=== PATIENT | female | born 1985 | race Two or more races ===

== ENCOUNTER 2019-12-13 17:54 | Emergency (ER) | payer OTHER ==
[~2019-12-13] VITALS: Ht 167.6 cm; Wt 86.6 kg
[2019-12-13 19:22] VITALS: BP 142/81
--- NOTE | 2019-12-13 20:00 | RAD ---
Exam: Left foot 3 views. Left ankle 3 views INDICATION: Trauma TECHNIQUE: Frontal, lateral and oblique views of the left ankle and left foot Comparisons: None FINDINGS: Ankle: There is a obliquely oriented fracture to the distal fibula. No other fractures are seen. There is soft tissue swelling surrounding the ankle. Bone mineralization is normal. Question mild medial clear space widening. Foot: Bone mineralization is normal. No acute or healed fractures. Soft tissues are unremarkable. Joint spaces are well-maintained. IMPRESSION: 1. Obliquely oriented fracture to the distal fibula. 2. Question mild medial clear space widening. 3. No acute fracture identified at the left foot Electronically signed by: Mikhail Hein MD (12/13/2019 7:57 PM) [id number]
--- NOTE | 2019-12-13 20:13 | PHYS DOC ---
Past Medical History Past Medical History: No Pertinent History Past Surgical History: No Surgical History Smoking Status: Never Smoker Alcohol Use: Occasionally General Adult EDM: Chief Complaint: ANKLE PROBLEM HPI: HPI: Patient is a 34 year old female who presents for evaluation of a left ankle injury. Patient fell at a friend's house 2 days ago and injured her left ankle. Patient denies any other injury patient describes the pain as throbbing and tin gling in her left lateral malleolus. Pain radiates into the foot is worse with palpation and movement and is better with palpation. Intensity is mild at rest and severe with movement. Review of Systems: Review of Systems: Constitutional: Denies fever or chills. [] Eyes: Denies change in visual acuity. [] HENT: Denies nasal congestion or sore throat. [] Respiratory: Denies cough or shortness of breath. [] Cardiovascular: Denies chest pain or edema. [] GI: Denies abdominal pain, nausea, vomiting, bloody stools or diarrhea. [] : Denies dysuria. [] Musculoskeletal: Denies back pain but has left ankle pain Integument: Denies rash. [] Neurologic: Denies headache, focal weakness or sensory changes. [] Endocrine: Denies polyuria or polydipsia. [] Lymphatic: Denies swollen glands. [] Psychiatric: Denies depression or anxiety. [] Heart Score: Risk Factors: Risk Factors: DM, Current or recent (<one month) smoker, HTN, HLP, family history of CAD, obesity. Risk Scores: Score 0 - 3: 2.5% MACE over next 6 weeks - Discharge Home Score 4 - 6: 20.3% MACE over next 6 weeks - Admit for Clinical Observation Score 7 - 10: 72.7% MACE over next 6 weeks - Early Invasive Strategies Allergies: Allergies: Allergies Coded Allergies Type Severity Reaction Last Updated Verified No Known Drug Allergies 12/15/15 No Physical Exam: PE: Constitutional: Well developed, well nourished, no acute distress, non-toxic appearance. [] HENT: Normocephalic, atraumatic, bilateral external ears normal, no trismus nose normal. [] Eyes: PERRLA, EOMI, conjunctiva normal, no discharge. [] Neck: Normal range of motion, no tenderness, supple, no stridor. [] Cardiovascular:Heart rate regular rhythm, peripheral pulses intact cap refill brisk Lungs & Thorax: Bilateral breath sounds cleaR no respiratory distress Abdomen: soft, no tenderness, no masses, no pulsatile masses. [] Skin: Warm, dry, no erythema, no rash. [] Back: No tenderness, no CVA tenderness. [] Extremities: Tenderness and swelling to the left lateral malleolus with swelling of the foot. Neurovascular intact distally. Neurologic: Alert and oriented X 3, normal motor function, normal sensory function, no focal deficits noted. [] Psychologic: Affect normal, judgement normal, mood normal. [] Current Patient Data: Vital Signs: Vital Signs Date Time Temp Pulse Resp B/P (MAP) Pulse Ox O2 Delivery O2 Flow Rate FiO2 12/13/19 19:22 97.6 75 12 142/81 (101) 99 Room Air 97.6 EKG: EKG: [] Radiology/Procedures: Radiology/Procedures: [][facility] [address] [place] [address] IMAGING REPORT Signed PATIENT: SILVIA YATES ACCOUNT: [id number] : 1985 LOCATION: ER AGE: 34 SEX: F EXAM STATUS: REG ER ORD. PHYSICIAN: LISETTE REYES MD REASON: trauma PROCEDURE: ANKLE LEFT 3V Exam: Left foot 3 views. Left ankle 3 views INDICATION: Trauma TECHNIQUE: Frontal, lateral and oblique views of the left ankle and left foot Comparisons: None FINDINGS: Ankle: There is a obliquely oriented fracture to the distal fibula. No other fractures are seen. There is soft tissue swelling surrounding the ankle. Bone mineralization is normal. Question mild medial clear space widening. Foot: Bone mineralization is normal. No acute or healed fractures. Soft tissues are unremarkable. Joint spaces are well-maintained. IMPRESSION: 1. Obliquely oriented fracture to the distal fibula. 2. Question mild medial clear space widening. 3. No acute fracture identified at the left foot Electronically signed by: Mikhail Gates MD (12/13/2019 7:57 PM) [id number] DICTATED and SIGNED BY: MIKHAIL GATES MD DATE: 12/13/19 195 Course & Med Decision Making: Course & Med Decision Making Pertinent Labs and Imaging studies reviewed. (See chart for details) [] 34-year-old female with a left lateral malleolar fracture. Short leg posterior splint applied by surface water technician. Examined by me after application. Neurovascular intact cap refill brisk. Patient will be splinted and follow-up with orthopedist. Hakeem Disclaimer: Hakeem Disclaimer: This electronic medical record was generated, in whole or in part, using a voice recognition dictation system. Departure Departure Impression: Primary Impression: Fracture of left ankle, lateral malleolus Disposition: 01 HOME, SELF-CARE Condition: STABLE Referrals: NO PCP (PCP) ADI GALLEGOS MD 2-3 DAYS Patient Instructions: Ankle Fracture, Cast or Splint Care, Crutch Use Additional Instructions: EMERGENCY DEPARTMENT GENERAL DISCHARGE INSTRUCTIONS THANK YOU for coming to [facility] Emergency Department (ED) today and trusting us with your care. We trust that you had a positive experience in our Emergency Department. If you wish to speak to the department Management you can contact the threshing department supervisor at . YOUR FOLLOW UP INSTRUCTIONS ARE FOLLOWS: Do you have a private doctor? If you do not have a private doctor, please ask for a resource list of physicians or clinics that may be able to assist you with follow up care. The Emergency Physician has interpreted your x-rays. The X-ray specialist will also review them. If there is a change in the findings you will be notified in 48 hours when at all possible. A lab test or lab culture may have been done, your results will be reviewed and you will be notified if you need a change in treatment. ADDITIONAL INSTRUCTIONS AND INFORMATION Your care today has been supervised by a physician who is specially trained in emergency care. Many problems require more than one evaluation for a complete diagnosis and treatment. We recommend that you schedule your follow up appointment as recommended to ensure complete treatment of your illness or injury. If you are unable to obtain follow up care and continue to have a problem, or if your condition worsens we recommend that you return to the ED. We are not able to safely determine your condition over the phone nor are we able to give sound medical advice over the phone. For these safety reasons, if you call for medical advice we will ask you to come to the ED for further evaluation If you have any questions regarding these discharge instructions please call the ED at . SAFETY INFORMATION In the interest of safety, wellness, and injury prevention; we encourage you to wear your seatbelt, if you smoke; quit smoking, and we encourage your family to use protective helmet for bicycling and other sporting events that present an increased risk for head injury. IF YOUR SYMPTOMS WORSEN OR NEW SYMPTOMS DEVELOP, OR YOU HAVE CONCERNS ABOUT YOUR CONDITION; OR IF YOUR CONDITION WORSENS WHILE YOU ARE WAITING FOR YOUR FOLLOW UP APPOINTMENT; EITHER CONTACT YOUR PRIMARY CARE DOCTOR, THE PHYSICIAN WHOSE NAME AND NUMBER YOU WERE GIVEN, OR RETURN TO THE ED IMMEDIATELY. Scripts Hydrocodone/Apap 5-325 (NORCO 5-325 TABLET) 1 Each Tablet 1-2 EACH PO PRN Q6HRS PRN for PAIN, #15 as needed for pain Prov: LISETTE REYES MD 12/13/19 Justicifation of Admission Dx: Justifications for Admission: Justification of Admission Dx: N/A LISETTE REYES MD Dec 13, 2019 20:13
[2019-12-13] MEDS ORDERED: HYDR-3164 PO (20:28)
== END 2019-12-13 20:45 | disposition home or self-care (01) ==
LOC: ER 17:54
DX: S82.62XA Displaced fracture of lateral malleolus of left fibula, initial encounter for closed fracture (principal); W18.39XA Other fall on same level, initial encounter; Y93.89 Activity, other specified; Y92.89 Other specified places as the place of occurrence of the external cause; Y99.8 Other external cause status
CPT/HCPCS: 29515; 73610; 73630; 99284